=== PATIENT | female | born 1985 | race Caucasian/White ===

== ENCOUNTER → 2018-05-14 | Outpatient (CLI) | payer OTHER ==
--- NOTE | 2018-05-14 11:32 | KCIC ---
Pelvic ultrasound Clinical Indication: Vaginal bleeding. Spotting for 2 months.. . TRANSABDOMINAL SCAN Uterus and ovaries are poorly seen transabdominally. TRANSVAGINAL SCAN Uterus: * Size (in centimeters): 6.7 cm length by 3.0 AP by 3.9 wide. * Appearance: No dominant mass. Note that the cervix is heterogeneous in appearance. * Endometrium: 2 mm endometrial stripe thickness. Uniform appearance. Right ovary: * Size: 2.8 cm long axis. * Blood flow: Intact * Appearance: No significant mass. Left ovary: * Size: 2.7 cm long axis. * Blood flow: Intact * Appearance: No significant mass. Free fluid: None visualized IMPRESSION: 1. Heterogeneous appearance of the cervix, uncertain significance. 2. Bilateral ovaries appear unremarkable. Electronically signed by: Elias Zamora MD (05/14/2018 11:29 AM) [facility]
== END | disposition home or self-care (01) ==
LOC: US 10:23
PROVIDERS: ATTEND Physician Assistant Surgical
DX: N93.8 Other specified abnormal uterine and vaginal bleeding (principal)
CPT/HCPCS: 76830; 76856

== ENCOUNTER → 2018-10-21 | Outpatient (CLI) | payer OTHER ==
--- NOTE | 2018-10-21 15:14 | KCIC ---
EXAM: MRI RIGHT WRIST DATE: 10/21/2018 1:15 PM CLINICAL HISTORY: Right wrist pain. Dorsal pain over proximal carpal row. History of prior ganglion cyst removal posteriorly. COMPARISON: None. TECHNIQUE: Multiplanar, multisequence MR imaging of the right wrist was performed without IV contrast. FINDINGS: The T1 marrow signal is grossly preserved without evidence for fracture or AVN. The intrinsic ligaments, including the scapholunate and lunotriquetral ligaments are intact. The extrinsic ligaments are grossly intact although evaluation is somewhat limited. The TFC disc is intact with grossly intact radial, foveal and styloid attachments. There is mild thickening and increased signal of the extensor carpi ulnaris at the level of the ulnar styloid consistent with moderate tendinosis. Otherwise visualized extensor tendons are intact, normal in signal and morphology without tenosynovitis. The flexor tendons are normal in signal and morphology, intact. There is no abnormal bowing of the flexor retinaculum. The visualized portions of the median and ulnar nerves are normal. No significant radiocarpal, distal radioulnar or midcarpal joint effusions. No discrete full-thickness cartilage defect is identified. IMPRESSION: 1. 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 Otherwise visualized flexor and extensor tendons are normal in signal and morphology, intact, without tenosynovitis. 2. The TFC disc and its attachments are intact. Electronically signed by: Ty Singh MD (10/21/2018 3:11 PM) [id number]
== END | disposition home or self-care (01) ==
LOC: KCIC MRI 11:28
PROVIDERS: ATTEND Nurse Practitioner Family
DX: M65.841 Other synovitis and tenosynovitis, right hand (principal)
CPT/HCPCS: 73221

== ENCOUNTER → 2019-07-20 | Outpatient (CLI) | payer OTHER ==
--- NOTE | 2019-07-20 16:02 | KCIC ---
EXAM: Chest, 2 views. HISTORY: Cough. COMPARISON: None. FINDINGS: 2 views of the chest are obtained. There is no infiltrate, pleural effusion or pneumothorax. The heart is normal in size. IMPRESSION: No acute pulmonary finding. Electronically signed by: Kavitha Randolph MD (07/20/2019 3:59 PM) [place] [id number]
== END | disposition home or self-care (01) ==
LOC: KCIC 13:34
PROVIDERS: ATTEND Family Medicine
DX: J45.909 Unspecified asthma, uncomplicated (principal)
CPT/HCPCS: 71046

== ENCOUNTER → 2020-05-11 | Outpatient (CLI) | payer OTHER ==
--- NOTE | 2020-05-11 15:03 | KCIC ---
EXAM: 2 views right foot DATE: 05/11/2020 12:00 AM INDICATION: Reason: RT FOOT PAIN 1-2 METATARSALS 1MO S/P INJURY / Spl. Instructions: HX OF FOOT FX FEW YRS AGO / History: COMPARISON: 11/04/2018 FINDINGS: No evidence of acute fracture or dislocation. Hallux valgus. Joint spaces are preserved without significant degenerative/proliferative change. The previously seen lucency at the base of the hallux distal phalanx is not seen on this examination, possibly as oblique view was not submitted. IMPRESSION: No acute fracture or dislocation. Electronically signed by: Ty Singh MD (05/11/2020 3:00 PM) [facility]
== END | disposition home or self-care (01) ==
LOC: KCIC 13:27
PROVIDERS: ATTEND Family Medicine
DX: M20.11 Hallux valgus (acquired), right foot (principal); M79.671 Pain in right foot
CPT/HCPCS: 73620

== ENCOUNTER → 2020-06-02 | Outpatient (CLI) | payer OTHER ==
--- NOTE | 2020-06-02 16:13 | KCIC ---
Examination: MRI of the right forefoot without contrast HISTORY: History of right foot pain, pain right big toe. Postoperative Comparison: None available TECHNIQUE: Multiplanar, multisequence MRI of the right forefoot without contrast. FINDINGS: The alignment of the tarsometatarsal, metatarsophalangeal joints, interphalangeal joints grossly appears unremarkable. There is mild increased T2 signal identified in the soft tissue about the proximal phalanx of the second and third digits. The distal attachment of the peroneus longus tendon grossly appears intact. IMPRESSION: 1. Mild increased T2 signal/edema identified in the soft tissue about the proximal phalanx of the second and third digits, nonspecific edema, otherwise unremarkable exam. Electronically signed by: Guanako Woodall MD (06/02/2020 4:10 PM) [id number]
== END ==
LOC: KCIC MRI 14:24
PROVIDERS: ATTEND Family Medicine
DX: M79.671 Pain in right foot (principal); R60.9 Edema, unspecified
CPT/HCPCS: 73718